=== PATIENT | female | born 1965 | race Caucasian/White ===

== ENCOUNTER 2016-12-26 08:23 | Emergency (ER) | payer MEDICAID ==
[~2016-12-26] VITALS: Ht 167.6 cm; Wt 68.0 kg
[2016-12-26] MEDS ORDERED: DELTASONE20 MG PO (08:55)
[2016-12-26] MEDS ORDERED: ZYRTEC10 MG PO (08:55)
[2016-12-26] MEDS ORDERED: PEPCID20 MG PO (08:55)
[2016-12-26] MEDS ORDERED: EPIPEN 2-P0.3 MG/0.3 IM (08:55)
[2016-12-26] MEDS ORDERED: LIDODERM1 EACH TD (08:55)
== END 2016-12-26 09:13 | disposition home or self-care (01) ==
LOC: ED 08:23
DX: F17.200 Nicotine dependence, unspecified, uncomplicated (principal); Z90.710 Acquired absence of both cervix and uterus
CPT/HCPCS: 96372; 99283; J2930

== ENCOUNTER 2017-04-18 12:03 | Emergency (ER) | payer MEDICAID ==
[~2017-04-18] VITALS: Ht 167.6 cm; Wt 65.8 kg
[~2017-04-18 12:03] MED LIST: DELTASONE20 MG PO; EPIPEN 2-P0.3 MG/0.3 IM; LIDODERM1 EACH TD; PEPCID20 MG PO; ZYRTEC10 MG PO
== END 2017-04-18 16:09 | disposition left against medical advice (07) ==
LOC: ED 12:03
DX: Z53.21 Procedure and treatment not carried out due to patient leaving prior to being seen by health care provider (principal)